=== PATIENT | female | born 1960 | race Caucasian/White ===

== ENCOUNTER 2025-03-13 13:05 | Outpatient (AMB) | payer BC, SELFPAY ==
--- NOTE | 2025-03-13 13:06 | A.PHYSOV ---
Vital Signs 03/13/25 13:11 Height 5 ft 4 in Weight 190 lb BMI 32.6 Intake Visit Reasons: follow up after Chavo back surgery Intake Note: Patient is a 64 year old female here for follow up after seeing Dr Spears. 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 Good is a 64-year-old female seen in evaluation today for right-sided low back pain. Patient previously had lumbar spinal stenosis. She underwent L5-S1 GRAEME on 09/12/2024 with 50% reduction of her pain. The patient was subsequently referred to neurosurgery for consultation. Patient tender of undergoing Neurosurgery in October. Shortly after that she developed severe right-sided low back pain that has markedly improved. The neurosurgeon is concern for sacroiliitis. Patient denies any radiation of her pain. She has been using anti-inflammatories and Tylenol for pain. She denies any recent trauma. She denies any incontinence, saddle anesthesia urinary retention. We do have MRI of her lumbar spine prior to surgery. She has a pain level today a 4/10. Procedure: L5-S1 GRAEME 09/12/2024 50% reduction of her pain [facility] Surgical History (Updated 03/13/25 @ 13:11 by Chayo Montgomery MA) History of back surgery Hx of tonsillectomy History of cancer surgery Previous section Social History Alcohol intake: current Patient Tobacco Use Status: Never used Tobacco Review of Systems Narrative Right-sided low back pain, no incontinence, saddle anesthesia urinary retention. With mod Physical Exam Exam Exam: Lumbar Spine: Examination of her lumbar spine, there is no visible swelling or deformity. She is nontender to her lower lumbar facets. She is tender to the right SI joint. Special Tests: Lhermittes sign was negative Heel Toe walk is normal Left straight leg raise: Negative Right straight leg raise: Negative Special tests Yamile test is positive right Ganslen's test is positive right SI Joint compression test positive right Ayse test negative Piriformis stretch is negative Lower Extremities: Full range of motion bilateral lower extremities. No calf pain or edema. Neuro: Sensation: Intact to lower extremities bilaterally Strength L2 (Psoas): 5/5 on the left and 5/5 on the right. L3 (Quads): 5/5 on the left and 5/5 on the right. L4 (Ant tibialis): 5/5 on the left and 5/5 on the right. L5 (EHL) 5/5 on the left and 5/5 on the right. S1 (Gastroc): 5/5 on the left and 5/5 on the right. DTR L4: (Patellar) Left 1 Right 1 S1: (Achilles) Left 1 Right 1 Babinski Downgoing No pathologic clonus. No involuntary movement. Vital Signs: BMI result Body Mass Index 32.6 Assessment & Plan Assessment & Plan (1) Sacroiliitis: Code(s): M46.1 - Sacroiliitis, not elsewhere classified Category: Medical (2) Back pain: Code(s): M54.9 - Dorsalgia, unspecified Category: Medical Qualifiers: Back pain location: low back pain Chronicity: chronic Back pain laterality: right Sciatica presence: without sciatica Qualified Code(s): M54.50 - Low back pain, unspecified; G89.29 - Other chronic pain Plan Ms. Good is a 64-year-old female seen in evaluation today for sacroiliitis. Her symptoms are improving. I will prescribe prednisone taper just in case her symptoms returned. She will contact our office if she would like to pursue SI joint injection. We discussed the benefits of proper nutrition and exercise to maintain a healthy body weight to improve longevity and function. We also discussed the benefits of proper lifting techniques, core strengthening and proper posture. Thank you for allowing me to participate in the care of your patient. Medications: New prednisone 3 tabs po for 3 days, 2 pills po for 3 days, 1 pill po for 3 days 20 mg PO DAILY 18 tabs 0RF G89.29 - Other chronic pain, M46.1 - Sacroiliitis, not elsewhere classified, M54.50 - Low back pain, unspecified Coding Level of Care Code Tele Est Pt Level 3 (88460) Diagnoses Sacroiliitis M46.1 Chronic right-sided low back pain without sciatica M54.50; G89.29 Back pain location: low back pain Chronicity: chronic Back pain laterality: right Sciatica presence: without sciatica
[2025-03-13 13:11] VITALS: BMI 32.6
--- OUTSIDE RECORDS SUMMARY | 2025-03-13 13:26 | XMS_ITS | Encounter Summary ---
Author Organization [facility] [place] [address] Care Team Providers Care Cath Lab Manager Name Role Phone Shayy Mcallister MD Primary Care Provider [phone] Reason for Visit * Reason Onset Date Comments Advice Only 03/10/2025 Worsening pain Encounter Details Date Type Department Care Team ([facility] Contact Info) Description 03/10/2025 Telephone Neurosurgery [facility] [address] [place] [address] Justina Yates PA [address], [address] [place] [address] Social History Tobacco Use Types Packs/Day Years Used Date Smoking Tobacco: Never Smokeless Tobacco: Never Alcohol Use Standard Drinks/Week Comments Yes 0 (1 standard drink = 0.6 oz pur e alcohol) 10-15 drinks per weekend Housing Instability Answer Date Recorde d Are you worried that in the next 2 months you may not have stable housing? No 07/22/2024 Food Access & Nutrition Answer Date Rec orded Do you have access to a vari ety of food including fruits and vegetables? Yes 07/22/2024 Access to Healthcare Answer Date Record ed Within the last 3 months, ho w many times did you visit the emergency department for your medical care? 0 07/22/2024 Health Literacy Answer Date Recorded How often do you need to hav e someone help you when you read instructions, pamphlets, or other written material from your doctor or pharmacy? Never 07/22/2024 Caregiver: How often do you need to have someone help you when you read instructions, pamphlets, or other written material from your doctor or pharmacy? Not on file 07/22/2024 Financial Risk Answer Date Recorded How hard is it for you to pa y for the very basics like food, housing, medical care, and air conditioning / heating? Very hard 07/22/2024 Transportation Answer Date Recorded Has the lack of transportati on kept you from meetings, work, or from getting things needed for daily living? No Has the lack of transportati on kept you from medical appointments or from getting medications? No 07/22/2024 Social Isolation Answer Date Recorded How often do you feel lonely or isolated from th ose around you? Never 07/22/2024 Food Risk Answer Date Recorded Within the past 12 months we worried whether our food would run out before we got money to buy more. Never true 07/22/2024 Within the past 12 months th e food we bought just didn't last and we didn't have money to get more. Never true 07/22/2024 Dependent Care Answer Date Recorded Do you need help finding or paying for care for your loved ones. For example, teacher early childhood development or elderly care for an older adult? No 07/22/2024 Education Answer Date Recorded Do you think completing more education or training, like finishing a GED, going to college, or learning a trade, would be helpful for you? No 07/22/2024 Employment and Income Answer Date Recor ded During the last four weeks, have you been actively looking for work? No 07/22/2024 Living Situation Answer Date Recorded What is your living situation? Unrecognized valu e 07/22/2024 Interpersonal Safety Answer Date Record ed Physical Abuse Unrecognized value 02/24/2025 Verbal Abuse Unrecognized value 02/24/2025 Education Answer Date Recorded What is the highest level of school you have completed or the highest degree you have received? 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 Hard to get up after bending. No particular inciting event. At her second postop visit in November Dr. Spears prescribed oral steroids for the SI joint pain, she does not feel it helped her. She was hesitant to try SI joint injection because In past steroid injections didn't help. However she will call Dr. Worthy and discuss getting right SI joint injection. Motrin not helping. I reminded her that when she first came in the office we talked about multiple factors that could be contributing to her back pain, including vertebrogenic back pain/Modic changes on MRI, SI joint pain. The decompression surgery helped her leg symptoms. She will call if she is not seeing improvement after SI joint injection, or has persistent chronic back pain that may do well with Intracept procedure. * Rhiannon Sheth - 03/10/2025 1:59 PM EST Patient called with worsening back pain. Can barely move or walk around. Is mostly sitting. Lookingfor advice. documented in this encounter Plan of Treatment Upcoming Encounters Date Type Department Care Team (Late st Contact Info) Description 03/30/2025 10:15 AM EST Office Visit Adult Medicine [address] [phone] Liliana Whyte PA [address] [place] [address] documented as of this encounter Goals Goal Patient Goal Type Associated Problems Recent Progress Patient-Stated? Author STG's General Yes López Villar, PT Note: Pt will perform correct technique for sup<->sit transfers w/ min VC's in 5/5 trials. (Met) Pt is Independent and compliant with initial HEP. (Met). Pt will report increased walking/standing tolerance to 30 mins or better for household IADL's and work activities. (Not met). Pt will report LBP that does not radiate to L buttock. (Not met) LTG's 12 visits General Yes López Villar, PT Note: Pt will I demonstrate proper technique for sup<->sit transfers in 5/5 trials. Pt will be Independent and compliant with final HEP. Pt will report increased walking/standing tolerance to at liberty for household IADL's and work activities. Pt will report RTW 1/2 time w/out increased L LBP. Autogenerated Goal Care Plan Autogenerated Problem No Thomas Anna documented as of this encounter Visit Diagnoses Not on filedocumented in this encounter Additional Health Concerns Active Problems Noted Date Diagnosed Date Autogenerated Problem 01/26/2025 Assessment Noted Time PHQ-9 Depression Total Score: 0 07/23/19 25 9:14 AM EDT documented as of this encounter Care Teams Cath Lab Manager Relationship Specialty Start Date End Date Shayy Mcallister MD [address] [place] [address] PCP - General 02/07/01 documented as of this encounter
--- OUTSIDE RECORDS SUMMARY | 2025-03-13 13:26 | XMS_ITS | Clinical Summary ---
Author Organization [facility] Address [address] [place] [phone] Phone Care Team Providers Care Commercial Leasing Manager Name Role Phone Shayy Mcallister MD Primary Care Provider [phone] Allergies Active Allergy Reactions Criticality Noted Date Comments Amoxicillin Trihydrate Hives Medium 05/04/2006 Other Reaction(s): Hives/Urticaria Erythromycin Hives High 07/01/2008 Other Reaction(s): Rash/Dermatitis Norethindrone Rash High 10/02/2013 Other Reaction(s): Rash/Dermatitis Terbinafine Hcl Hives Medium 07/20/2009 Other Reaction(s): Hives/Urticaria Medications dexAMETHasone (DECADRON) 2 mg tabletIndication s:Spinal stenosis, lumbar region with neurogenic claudication Take 1 tablet (2 mg total) by mouth every 8 (eight) hours for 4 days. 12 each 5 Active lisinopriL (PRINIVIL,ZESTRI L) 20 mg tablet Take 1 tablet (20 mg total) by mouth at bedtime. 90 tablet 5 Active metFORMIN (GLUCOPHAGE) 500 mg tablet TAKE 1 TABLET BY MOUTH 1 TIME EACH DAY WITH BREAKFAST. 90 tablet 1 5 Active atorvastatin (LIPITOR) 80 mg tablet TAKE 1 TABLET BY MOUTH EVERYDAY AT BEDTIME 90 tablet 1 5 Active polyethylene glycol (Golytely) 236-22.74-6.74 -5.86 gram solution Take 4L by mouth once for one dose. May substitue any PEG. Starting at 2PM the day before your procedure drink 1 8oz glasses at your own pace until you complete half of the gallon. Finish 2nd half of the gallon at 8PM. 4000 mL 5 Active bisacodyL (DULCOLAX) 5 mg EC tablet Take 2 tablets by mouth right before beginning bowel prep. See instructions provided by the office 2 tablet 5 Active Active Problems Problem Noted Date Diagnosed Date Spinal stenosis, lumbar region with neurogenic c laudication 10/14/2024 Assessment & Plan (12/02/2024 9:58 AM EDT): Ms. Kennedy has had resolution of the paresthesias in her legs but unfortunately, continues to have some sharp back pain limiting her activity tolerance to about 5 minutes. She is nonfocal on exam except for tenderness at her SI joints. This may be a confounding factor as she had extensive decompression at surgery. I am going to try her on a few days of low-dose Decadron as she was not anxious to consider SI joint injections. I also encouraged her to continue a walking and exercise program to the best of her ability. I did not see anything else on her preoperative study which I would offer intervention. Assessment & Plan (11/04/2024 3:02 PM EDT): Pt is POD #12 s/p L3-4 decompression and left L5-S1 discectomy. She is doing well, no fevers, wound drainage, sweats chills. She has good appetite. No bowel bladder dysfunction. She been walking around the house, has not done much walking outside yet. She notes that she is up for about 10 minutes or more she starts to feel some soreness in her back. She takes Tylenol 2 tabs every morning and does not need anything rest in the day. Ms. Kennedy is doing well postop, can follow-up in [address] Spears if she has any residual symptoms at that time. All postop questions answered. I Asked her to call with any concerns or questions. Assessment & Plan (10/27/2024 1:24 PM EDT): Patient is POD #4 s/p L3-4 decompression and left L5-S1 discectomy. She comes in today because she has had some bloody drainage from her wound, came in for wound check. She had the same bandage on her back from last night, there was minimal bloody drainage. Also one of the danika had twisted, was painful. She has been eating well, no bowel bladder issues. She has been having incisional pain, has not really paid attention to the preop symptoms to see if they have improved but has not noticed any numbness in her foot. Her pain is across the low back from the incision area. She has not specifically noticed leg pain. She has not been doing much walking yet. she has been using Tylenol and oxycodone every 6 hours, feels it wears off sooner than the 6 hours. She is not on any fish oil, aspirin, Plavix, NSAIDs. Ms. Kennedy is overall doing well postop, had minimal bloody drainage on her dressing from last night. I cleaned up the area, she had some coagulated blood over the midline incision, mild ecchymosis around the midline incision. Gauze dressing placed. I gave her some extra gauze and Medipore tape to put over the incision until the drainage stops. I told her she can take the oxycodone every 4 hours if needed. All questions answered. She comes in next week for postop appointment and to remove her danika. Assessment & Plan (10/14/2024 2:14 PM EDT): I reviewed patient's case and MRI with Dr. Spears. Dr. Spears agrees with L3-4 decompression for the severe stenosis and neurogenic claudication symptoms. She would also like to include left MIS L5-S1 discectomy since patient saw improvement with L5-S1 GRAEME in her left buttock pain, some of her symptoms may be coming from the left L5-S1 disc herniation as well. I called patient to give her this update, she agrees she would like to do L3-4 decompression and left L5-S1 discectomy. Spondylosis, unspecified 10/14/2024 Fatty liver 02/18/2024 COVID-19 virus detected 02/19/2020 Overview (04/10/2024): Per patient, exposed to son who was positive and she also tested + August 2019 Type 2 diabetes mellitus with obesity 01/25/2017 Overview (01/21/2025): 01/21/25 Regulatory IMO Update History of basal cell carcinoma 05/20/2013 Overview (04/10/2024): BCC 05/06 forehead (nodular) Diverticulosis of colon without hemorrhage 08/26 Overview (04/10/2024): Incidental finding at colonoscopy 08/26/2012. Tubular adenoma 08/26/2012 Overview (04/10/2024): 5 mm sigmoid colon polyp at CN 08/26/2012: tubular adenoma. Next CN 2017. HTN (hypertension), benign 05/03/2010 Hypercholesteremia 08/05/2008 Obesity (BMI 30.0-34.9) 07/01/2008 Onychomycosis 07/01/2008 Resolved Problems Problem Noted Date Diagnosed Date Resolved Date Melanocytic nevus of trunk 08/14/2022 0 11/26/2024 Inflamed seborrheic keratosis 08/14/2022 11/26/2024 Disorder of pigmentation 08/14/202209/2024 Diabetes mellitus ([facility]/HCC V24, [facility]/HCC V28) 11/26/2024 Basal cell carcinoma (BCC) of skin of trunk 08/14/2022 11/26/2024 Benign neoplasm of colon 09/2024 Overview (07/22/2024): 5 mm sigmoid colon polyp at CN 08/26/2012. Encounters Date Type Department Care Team Description 03/10/2025 Telephone [facility] [address] [place] [address] Jutsina Yates PA 02/24/2025 8:52 AM EST Anesthesia Event [facility] [address] [place] [phone] Frederick Licona MD Hayes, Brett L, JULISSA 02/24/2025 7:37 AM EST - 02/24/2025 11:59 PM EST Hospital Encounter [facility] [address] [place] [address] Lilia Lepe MD Hayes, Brett L, CRNA Saliga, Jesse L, MD History of colon polyps Discharge Disposition: Home or Self Care 02/18/2025 Telephone Adult Medicine [address] [phone] Shayy Mcallister MD from Last 3 Months Immunizations Immunization Administration Dates Next Due [employer] SARS-CoV-2 COVID -19, vector-nr, rS-Ad26, preservative free 08/02/2020 Td Tetanus diptheria (Tdvax) 7yo and older 09/04 Tdap Tetanus diptheria acell ular pertussis (Boostrix; Adacel) 7yo and older 07/01/2008 Surgical History Surgery Date Site/Laterality Comments SECTION 1986 & 1991 BACK SURGERY 04/23/1999 - 04/22/2000 likely L4-5 decompression/ discectomy, Dr. Mitchell COLONOSCOPY W/ BIOPSIES 08/26/2012 5 mm sigmoid colon polyp, tubular adenoma. minimal diverticulosis. OTHER SURGICAL HISTORY SPINE SURGERY 04/23/2019 - 04/22/2020 N/A SECTION, LOW TRANSVERSE BACK SURGERY 10/23/2024 L3-4 decompression and left L5-S1 discectomy LUMBAR DISC SURGERY 11/14 L3-4 decompression, L5-S1 diskectomy SCR MAMMO BI INCL CAD 02/18/2024 Bilateral TONSILLECTOMY Medical History Medical History Date Comments Obesity 07/01/2008 Onychomycosis 07/01/2008 Hypercholesteremia 08/05/2008 HTN (hypertension), benign 05/03/2010 Benign neoplasm of colon 08/26/2012 5 mm si gmoid colon polyp at CN 08/26/2012. Diverticulosis of colon (wit hout mention of hemorrhage) 08/26/2012 Incidental finding at colono scopy 08/26/2012. Actinic keratosis, hx of Diabetes mellitus type 2, un complicated (CMS/HCC V24, CMS/HCC V28) 01/25/2017 History of basal cell carcinoma 05/20/2013 BCC 05/06 forehead (nodular) Liver disease fatty liver Arthritis Joint pain lower back Colon polyp Fatty liver Family History Medical History Relation Name Comments Other: surgery complication Father 54 Diabetes Father's Brother Diabetes Father's Sister 1 Diabetes Father's Sister 2 ESRD & manuela t amputation Coronary artery disease Mother accidental Sister 1 x 1 fell into f anselmo pit & burned 75% of body Hypertension Sister 2 x 1 prediabetes, BC C w/ Moh's Relation Name Status Comments Brother x 1 Alive Father Father's Brother Father's Sister 1 Alive Father's Sister 2 Maternal Grandfather Maternal Grandmother Mother Paternal Grandfather Paternal Grandmother Sister 1 x 1 Sister 2 x 1 Alive Social History Tobacco Use Types Packs/Day Years Used Date Smoking Tobacco: Never Smokeless Tobacco: Never Tobacco Cessation:Counseling Given: Not Answered Alcohol Use Standard Drinks/Week Comments Yes 0 [...] care for your loved ones. For example, registered nurse maternal child or elderly care for an older adult? 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 Not on file Not on file Not on file Travel History Travel Start Travel End [place] 01/18/2025 02/17/2025 Obstetrics History Last Filed Vital Signs Vital Sign Reading Time Taken Comments Blood Pressure 142/73 02/24/2025 9:32 AM EST Pulse 70 02/24/2025 9:32 AM EST Temperature 36.8 C (98.2 F) 02/24/2025 9:12 AM EST Respiratory Rate 16 02/24/2025 9:32 AM EST Oxygen Saturation 98% 02/24/2025 9:32 AM EST Inhaled Oxygen Concentration - - Weight 88.5 kg (195 lb) 02/24/2025 8:41 AM EST Height 162.6 cm (5' 4 ) 02/24/2025 8:41 AM EST Body Mass Index 33.47 02/24/2025 8:41 AM EST Plan of Treatment Upcoming Encounters Date Type Department Care Team (Late st Contact Info) Description 03/30/2025 10:15 AM EST Office Visit Adult Medicine [facility] [address], [place] [phone] Liliana Whyte PA [address], [place] Health Maintenance Due Date Last Done Comments Diabetes: Annual Retina Eye Exam 1970 Pneumococcal Vaccine: 50+ Years (1 of 2 - PCV) 1979 Zoster Vaccines (1 of 2) 1979 COVID-19 Vaccine (2 - Tish risk series) 08/30/2020 08/02/2020 HIV Screening 04/01/2022 Cervical Cancer Screening: HPV 05/08/2024 05/08/2019 Influenza Vaccine (#1) 2024 Diabetes: Annual Foot Exam 02/13/2025 02/14/2024 Diabetes: Blood Sugar Control Test (HGBA1C) 05/29/2025 11/26/2024, 07/17/2024, 01/29/2024, Additional history exists Diabetes: Annual Urine Albumin-Creatinine Ratio (uACR) 07/17/2025 07/17/2024, 03/27/2023 Social Influencers of Health Screening 07/22/2025 07/22/2024 Diabetes: Annual GFR (Glomerular Filtration Rate) 11/26/2025 11/26/2024, 07/17/2024, 01/29/2024, Additional history exists Hypertension/CHF/CAD Annual BMP Blood Test 11/26/2025 11/26/2024, 07/17/2024, 01/29/2024, Additional history exists Breast Cancer Screening 02/17/2026 02/18/20, 02/18/2024, 04/19/2022, Additional history exists DTaP,Tdap,and Td Vaccines (3 - Td or Tdap) 09/04/2028 09/04/2018, 07/01/2008 Cholesterol Screening (Lipid Panel) 11/26/2029 11/26/2024, 01/29/2024, 01/29/2024 Colorectal Cancer Screening: Colonoscopy 02/24/2030 02/24/2025, 01/06/2019 RSV Immunization Adult Patients (1 - 1-dose 75+ series) 2035 Hepatitis C Screening Completed 08/21/2013 Depression Screening Completed 07/22/2024 HIB Vaccines Aged Out No longer eligi ble based on patient's age to complete this topic HPV Vaccines Aged Out No longer eligi ble based on patient's age to complete this topic Hepatitis A Vaccines Aged Out No long er eligible based on patient's age to complete this topic Hepatitis B Vaccines Aged Out No long er eligible based on patient's age to complete this topic IPV Vaccines Aged Out No longer eligi ble based on patient's age to complete this topic MMR Vaccines Aged Out No longer eligi ble based on patient's age to complete this topic Meningococcal ACWY Vaccine Aged Out N o longer eligible based on patient's age to complete this topic Meningococcal B Vaccine Aged Out No l onger eligible based on patient's age to complete this topic RSV Immunization Patients Under 20 months Aged Out No longer eligible based on patient's age to complete this topic Varicella Vaccines Aged Out No longer eligible based on patient's age to complete this topic Goals Goal Patient Goal Type Associated Problems [...] Autogenerated Goal Care Plan Autogenerated Problem No [employer] Implanted Type Area Battalion Fire Chief Device Identifier Shelf Expiration Date Model / Serial / Lot Powder Surgifoam Absorb Gel - Sna - [id number] Implanted:Qty: 1 on 10/23/2024 by Margi Spears MD at [facility] [employer] Left: Spine Lumbar [employer] 07/08/20261977 / NA / [id number] Procedures Procedure Name Priority Date/Time Associated Diagnosis Comments COLONOSCOPY Routine 02/24/2025 9:11 AM EST History of colon polyps TISSUE EXAM Routine 02/24/2025 9:03 AM EST History of colon polyps COMPREHENSIVE METABOLIC PANEL Routine 11/26/2024 10:20 AM EDT HTN (hypertension), benign HEMOGLOBIN A1C Routine 11/26/2024 10:20 AM EDT Type 2 diabetes mellitus with obesity ([facility]/HCC V24, CMS/[facility] V28) LIPID PANEL WITH REFLEX TO DIRECT LDL Routine 11/26/2024 10:20 AM EDT Hypercholesteremia MICROALBUMIN CREATININE URINE RATIO Routine 07/17/2024 9:30 AM EDT Type 2 diabetes mellitus with obesity (CMS/HCC V24, CMS/HCC V28) SCREENING MAMMOGRAPHY BI 2-VIEW BREAST INC CAD Routine 02/18/2024 8:11 AM EDT Encounter for screening mammogram for malignant neoplasm of breast DIABETES FOOT EXAM Routine 02/14/2024 HPV Routine 05/08/2019 HEPATITIS C SCREENING Routine 08/21/2013 from Last 3 Months or Most Recently Relevant to Health Maintenance Results * COLONOSCOPY Anesthesia - MAC; [facility] ENDOSCOPY (02/24/2025 9:11 AM EST) Anatomical Region Laterality Modality Endoscopy 02/24/2025 8:54 AM EST Impressions 02/24/2025 9:16 AM EST - Two diminutive polyps in the ascending colon, removed with a jumbo cold forceps. Resected and retrieved. - Diverticulosis in the sigmoid colon. - Internal hemorrhoids. Recommendation: - Await pathology results. - Repeat colonoscopy in 10 years for surveillance. Narrative 02/24/2025 9:[address] [facility] Patient Name: Pam Kennedy Procedure Date: 02/24/2025 8:54 AM Date of : 1960 Age: 64 Gender: Female Note Status: Finalized Attending MD: Lilia Lepe MD, Procedure Date No Time: 02/24/2025 Procedure: Colonoscopy Indications: High risk colon cancer surveillance: Personal history of colonic polyps Providers: Lilia Lepe MD Referring MD: Lilia Lepe MD Medicines: Monitored Anesthesia Care Complications: No immediate complications. Estimated blood loss: Minimal. Estimated Blood Loss: Estimated blood loss was minimal. Procedure: Pre-Anesthesia Assessment: - Prior to the procedure, a History and Physical was performed, and patient medications and allergies were reviewed. The patient is competent. The risks and benefits of the procedure and the sedation options and risks were discussed with the patient. All questions were answered and informed consent was obtained. Patient identification and proposed procedure were verified by the physician, the nurse, the electrical plumbing supervisor and the residential service technician in the pre-procedure area in the endoscopy suite. Mental Status Examination: alert and oriented. Airway Examination: normal oropharyngeal airway and neck mobility. Respiratory Examination: clear to auscultation. CV Examination: normal. Prophylactic Antibiotics: The patient does not require prophylactic antibiotics. Prior Anticoagulants: The patient has taken no anticoagulant or antiplatelet agents. ASA Grade Assessment: III - A patient with severe systemic disease. After reviewing the risks and benefits, the patient was deemed in satisfactory condition to undergo the procedure. The anesthesia plan was to use monitored anesthesia care (MAC). Immediately prior to administration of medications, the patient was re-assessed for adequacy to receive sedatives. The heart rate, respiratory rate, oxygen saturations, blood pressure, adequacy of pulmonary ventilation, and response to care were monitored throughout the procedure. The physical status of the patient was re-assessed after the procedure. After I obtained informed consent, the scope was passed under direct vision. Throughout the procedure, the patient's blood pressure, pulse, and oxygen saturations were monitored continuously. The Colonoscope was introduced through the anus and advanced to the cecum, identified by appendiceal orifice and ileocecal valve. The colonoscopy was performed without difficulty. The patient tolerated the procedure well. The quality of the bowel preparation was good. Findings: The perianal and digital rectal examinations were normal. Two sessile polyps were found in the ascending colon. The polyps were diminutive in size. These polyps were removed with a jumbo cold forceps. Resection and retrieval were complete. Estimated blood loss was minimal. Scattered small-mouthed diverticula were found in the sigmoid colon. Internal hemorrhoids were found during endoscopy. The hemorrhoids were Grade I (internal hemorrhoids that do not prolapse). Procedure Code(s): --- Professional --- 32004, Colonoscopy, flexible; with biopsy, single or multiple Diagnosis Code(s): --- Professional --- D12.2, Benign neoplasm of ascending colon CPT copyright 2020 [employer]. All rights reserved. The codes documented in this report are preliminary and upon fence installer foreman review may be revised to meet current compliance requirements. Lilia Lepe MD 02/24/2025 9:16:27 AM This report has been signed electronically.Lilia Lepe MD Number of Addenda: 0 Note Initiated On: 02/24/2025 8:54 AM Scope Withdrawal Time: 0 hours 9 minutes 55 seconds Scope In: 8:58:07 AM Scope Out: 9:13:30 AM Endoscopy Department at [facility] - [address] [place] [phone] Procedure Note Lilia Lepe MD - 02/24/2025 [facility] Patient Name: Pam Kennedy Procedure Date: 02/24/2025 8:54 AM Date of : 1960 Age: 64 Gender: Female Note Status: Finalized Attending MD: Lilia Lepe MD, Procedure Date No Time: 02/24/2025 Procedure: Colonoscopy Indications: High risk colon cancer surveillance: Personalhistory of colonic polyps Providers: Lilia Lepe MD Referring MD: Lilia Lepe MD Medicines: Monitored Anesthesia Care Complications: No immediate complications. Estimated blood loss: Minimal. Estimated Blood Loss: Estimated blood loss was minimal. Procedure: Pre-Anesthesia Assessment: - Prior to the procedure, a History and Physicalwas performed, and patient medications and allergieswere reviewed. The patient is competent. The risks and benefits of the procedure and the sedation optionsand risks were discussed with the patient. Allquestions were answered and informed consent was obtained. Patient identification and proposed procedure were verified by the physician, the nurse, theanesthetist and the residential service technician in the pre-procedure area in the endoscopy suite. Mental Status Examination: alertand oriented. Airway Examination: normal oropharyngeal airway and neck mobility. Respiratory Examination: clear to auscultation. CV Examination: normal. Prophylactic Antibiotics: The patient does notrequire prophylactic antibiotics. Prior Anticoagulants: The patient has taken no anticoagulant or antiplatelet agents. ASA Grade Assessment: III - A patient with severe systemic disease. After reviewing the risksand benefits, the patient was deemed in satisfactory condition to undergo the procedure. The anesthesia plan was to use monitored anesthesia care (MAC). Immediately prior to administration of medications, the patient was re-assessed for adequacy to receive sedatives. The heart rate, respiratory rate, oxygen saturations, blood pressure, adequacy of pulmonary ventilation, and response to care were monitored throughout the procedure. The physical status ofthe patient was re-assessed after the procedure. After I obtained informed consent, the scope was passed under direct vision. Throughout theprocedure, the patient's blood pressure, pulse, and oxygen saturations were monitored continuously. The Colonoscope was introduced through the anus and advanced to the cecum, identified by appendiceal orifice and ileocecal valve. The colonoscopy was performed without difficulty. The patient tolerated the procedure well. The quality of the bowel preparation was good. Findings: The perianal and digital rectal examinations were normal. Two sessile polyps were found in the ascendingcolon. The polyps were diminutive in size. These polypswere removed with a jumbo cold forceps. Resection and retrieval were complete. Estimated blood loss was minimal. Scattered small-mouthed diverticula were found inthe sigmoid colon. Internal hemorrhoids were found during endoscopy.The hemorrhoids were Grade I (internal hemorrhoids thatdo not prolapse). Procedure Code(s): --- Professional --- 71866, Colonoscopy, flexible; with biopsy, singleor multiple Diagnosis Code(s): --- Professional --- D12.2, Benign neoplasm of ascending colon CPT copyright 2020 [employer]. All rights reserved. The codes documented in this report are preliminary and upon fence installer foreman reviewmay be revised to meet current compliance requirements. Lilia Lepe MD 02/24/2025 9:16:27 AM This report has been signed electronically.Lilia Lepe MD Number of Addenda: 0 Note Initiated On: 02/24/2025 8:54 AM Scope Withdrawal Time: 0 hours 9 minutes 55 seconds Scope In: 8:58:07 AM Scope Out: 9:13:30 AM Endoscopy Department at [facility] - [address] [place] [phone] IMPRESSION: - Two diminutive polyps in the ascending colon, removed with a jumbo cold forceps. Resected and retrieved. - Diverticulosis in the sigmoid colon. - Internal hemorrhoids. Recommendation: - Await pathology results. - Repeat colonoscopy in 10 years forsurveillance. Lilia Lepe MD GI~PROCEDURE ORDERABLES Fin al Result * Tissue exam (02/24/2025 9:03 AM EST) Final Diagnosis Ascending colon polyps x2: Tubular adenoma(s), two of three fragments 02/25/2025 11:43 AM [facility] at 1143 EST Gross Description A. Large Intestine, Right/Ascend ing Colon, polyps x2 via jumbo forcep: Labeled polyps x 2 ascend colon . Received in formalin are three soft, tavares-pink, slightly polypoid tissue fragments ranging from 0.25 cm to 0.35 cm in greatest diameter, which are wrapped in paper and submitted in toto in one cassette, three pieces, multiple levels. TS 02/25/2025 11:43 AM [facility] Disclaimer Unless otherwise specified, all tissue is 10% NB formalin fixed and paraffin embedded. 02/25/2025 11:43 AM [facility] Tissue Ascending colon structure / Unknown 02/24/2025 9:03 AM EST 02/24/2025 10:32 AM EST us Lilia Lepe MD LAB PATHOLOGY ORDERABLES Fi nal Result Performing Organization Address City/[facility]/ZIP Co de Phone Number [facility] [address] [place] [address], [place] [phone] * (ABNORMAL) Lipid panel with reflex to direct LDL (11/26/2024 10:20 AM EDT) Cholesterol 199 0 - 200 mg/dL LAB CHEMISTRY METHOD 11/26/2024 12:52 PM EDT [facility] Triglycerides 102 0 - 150 mg/dL LAB CHEMISTRY METHOD 11/26/2024 12:52 PM EDT [facility] HDL 78 >=40 mg/dL LAB CHEMISTRY METHOD 11/26/2024 12:52 PM EDT [facility] LDL Calculated 101(H) 0 - 100 mg/dL LAB CHEMISTRY METHOD 11/26/2024 12:52 PM EDT [facility] Comment:Estimated LDL Calcul ated using equation: Total cholesterol - HDL cholesterol - (Triglycerides/5) VLDL Cholesterol Alexis 20.4 mg/dL LAB CHEMISTRY METHOD 11/26/2024 12:52 PM EDT [facility] Non HDL Chol. (LDL+VLDL) 121 <145 mg/dL LAB CHEMISTRY METHOD 11/26/2024 12:52 PM EDT [facility] Chol/HDL Ratio 2.6 0.0 - 4.4 LAB CHEMISTRY METHOD 11/26/2024 12:52 PM EDT [facility] Blood Venous blood specimen / Unknown Venipuncture / Unknown 11/26/2024 10:20 AM EDT 11/26/2024 10:20 AM EDT us Shayy Mcallister MD LAB BLOOD ORDERABLES Final Resul t [facility] [address] [place] [address], [place] [phone] * (ABNORMAL) Hemoglobin A1c (11/26/2024 10:20 AM EDT) [facility] Hemoglobin A1C 6.6(H) <6.5 % LAB CHEMISTRY METHOD 11/26/2024 1:21 PM EDT [facility] Mean Bld Glu Estim. 143 mg/dL LAB CHEMISTRY METHOD 11/26/2024 1:21 PM EDT [facility] Blood Venous blood specimen / Unknown Venipuncture / Unknown 11/26/2024 10:20 AM EDT 11/26/2024 10:20 AM EDT us Shayy Mcallister MD LAB BLOOD ORDERABLES Final Resul t [facility] [address] [place] [address], [place] [phone] * (ABNORMAL) Comprehensive metabolic panel (11/26/2024 10:20 AM EDT) [facility] Sodium 139 133 - 145 mmol/L LAB CHEMISTRY METHOD 11/26/2024 12:52 PM [facility] Potassium 4.6 3.5 - 5.5 mmol/L LAB CHEMISTRY METHOD 11/26/2024 12:52 PM [facility] Chloride 106 96 - 110 mmol/L LAB CHEMISTRY METHOD 11/26/2024 12:52 PM [facility] CO2 28 21 - 32 mmol/L LAB CHEMISTRY METHOD 11/26/2024 12:52 PM [facility] Anion Gap 5 3 - 11 LAB CHEMISTRY METHOD 11/26/2024 12:52 PM [facility] Glucose 123(H) 70 - 100 mg/dL LAB CHEMISTRY METHOD 11/26/2024 12:52 PM [facility] BUN 15 5 - 25 mg/dL LAB CHEMISTRY METHOD 11/26/2024 12:52 PM [facility] Creatinine 0.79 0.50 - 1.10 mg/dL LAB CHEMISTRY METHOD 11/26/2024 12:52 PM [facility] eGFR 84 >=60 mL/min/1. 73m2 LAB CHEMISTRY METHOD 11/26/2024 12:52 PM [facility] Comment:Calculation based on the Chronic Kidney Disease Epidemiology Collaboration (CKD-EPI) equation refit without adjustment for race. BUN/Creatinine Ratio 19.0 LAB CHEMISTRY METHOD 11/26/2024 12:52 PM [facility] Calcium 8.9 8.5 - 10.5 mg/dL LAB CHEMISTRY METHOD 11/26/2024 12:52 PM [facility] AST (SGOT) 18 10 - 42 unit/L LAB CHEMISTRY METHOD 11/26/2024 12:52 PM [facility] ALT (SGPT) 22 10 - 60 unit/L LAB CHEMISTRY METHOD 11/26/2024 12:52 PM [facility] Alkaline Phosphatase 175(H) 42 - 121 unit/L LAB CHEMISTRY METHOD 11/26/2024 12:52 PM [facility] Total Protein 6.9 6.0 - 8.0 g/dL LAB CHEMISTRY METHOD 11/26/2024 12:52 PM [facility] Albumin 3.7 3.2 - 5.0 g/dL LAB CHEMISTRY METHOD 11/26/2024 12:52 PM [facility] Total Bilirubin 0.3 0.0 - 1.4 mg/dL LAB CHEMISTRY METHOD 11/26/2024 12:52 PM [facility] Blood Venous blood specimen / Unknown Venipuncture / Unknown 11/26/2024 10:20 AM EDT 11/26/2024 10:20 AM EDT us Shayy Mcallister MD LAB BLOOD ORDERABLES Final Resul t Performing Organization Address [facility] Co de Phone Number [facility] [address] [place] [address], * Microalbumin creatinine urine ratio (07/17/2024 9:30 AM EDT) Creatinine, Urine 110.0 mg/dL LAB CHEMISTRY METHOD 07/17/2024 4:38 PM EDT [facility] Microalb, Ur 6.4 0.0 - 29.0 mg/L LAB CHEMISTRY METHOD 07/17/2024 4:38 PM EDT [facility] Microalb/Creat Ratio 6 <30 mg/g creat LAB CHEMISTRY METHOD 07/17/2024 4:38 PM EDT [facility] Urine Urine specimen obtained by clean catch procedure / Unknown Non-blood Collection / Unknown 07/17/2024 9:30 AM EDT 07/17/2024 9:30 AM EDT Shayy Mcallister MD LAB URINE ORDERABLES Final Resul t Performing Organization Address [facility] de Phone Number [facility] [address] [place] [address], * SCREENING MAMMOGRAPHY BI 2-VIEW BREAST INC CAD (02/18/2024 8:11 AM EDT) Anatomical Region Laterality Modality Radiographic Eladia ging 08/03/2023 8:03 PM EDT Narrative 02/18/2024 7:27 PM EDT This is a summary report. The complete report is available in the patient's medical record. If you cannot access the medical record, please contact the sending organization for a detailed fax or copy. Exam: Screening mammogram Findings: Digital bilateral full-field screening mammography is performed with tomosynthesis and interpreted with the aid of computer-aided detection. Comparison is made with 02/17/2022 and as far back as 03/31/2020. Breast parenchyma is composed of scattered fibroglandular densities. No new suspicious mass, architectural distortion, or suspicious calcifications. Impression: No mammographic evidence of malignancy. BI-RADS 1 - negative [address] [address] Procedure Note Alexsandra Santos MD - 02/23/2024 This is a summary report. The complete report is available in thepatient's medical record. If you cannot access the medical record, pleasecontact the sending organization for a detailed fax or copy. Exam: Screening mammogram Findings: Digital bilateral full-field screening mammography is performedwith tomosynthesis and interpreted with the aid of computer-aideddetection. Comparison is made with 02/17/2022 and as far back as106/01/2019. Breast parenchyma is composed of scattered fibroglandular densities. Nonew suspicious mass, architectural distortion, or suspiciouscalcifications. Impression: No mammographic evidence of malignancy. BI-RADS 1 - negative [address] [address] Liliana CHONG IMG XR PROCEDURES Final Resul t * Diabetes Foot Exam (02/14/2024) [facility] Diabetes: Annual Foot Exam abstracted Result [facility] Provider HEALTH MAINTENANCE Final Result * Cervical Cancer Screening: HPV (05/08/2019) [facility] Cervical Cancer Screening: HPV negative, abstracted [facility] Provider HEALTH MAINTENANCE Final Result * Hepatitis C Screening (08/21/2013) Pathologist [facility] Hepatitis C Screening abstracted [facility] Provider HEALTH MAINTENANCE Final Result from Last 3 Months or Most Recently Relevant to Health Maintenance Additional Health Concerns Active Problems Noted Date Diagnosed Date Autogenerated Problem 01/26/2025 Insurance [facility] Care Teams Commercial Leasing Manager Relationship Specialty Start Date End Date Shayy Mcallister MD [address] [place] [address] PCP - General 02/07/01
== END 2025-03-13 14:02 | disposition home or self-care (01) ==
LOC: HO.HPHYS 13:05
PROVIDERS: PCP Internal Medicine; Visit Provider Physician Assistant
DX: M46.1 Sacroiliitis, not elsewhere classified (principal); M54.50 Low back pain, unspecified; G89.29 Other chronic pain
CPT/HCPCS: 99213

== ENCOUNTER 2025-03-27 13:02 | Outpatient (REF) | payer MEDICARE, SELFPAY | END 2025-03-27 13:03 | disposition home or self-care (01) | LOC: HO.HPHYSR 13:02 | PROVIDERS: PCP Internal Medicine; Visit Provider Physical Medicine & Rehabilitation | DX: M46.1 Sacroiliitis, not elsewhere classified (principal); M53.3 Sacrococcygeal disorders, not elsewhere classified | CPT/HCPCS: 27096; J2003; J3301; Q9967 ==

== ENCOUNTER 2025-03-27 13:02 | Outpatient (AMB) | payer MEDICARE, SELFPAY ==
[2025-03-27 13:06] VITALS: BP 120/74; PULSE 97; TEMP 36.2; BMI 32.6
--- NOTE | 2025-03-27 13:06 | A.PHYSOV_ITS ---
Vital Signs 03/27/25 13:06 Height 5 ft 4 in Weight 190 lb BMI 32.6 BP 120/74 Pulse 97 Temp 97.2 F Intake Visit Reasons: Right Sacroiliac Joint Injection Intake Note: Patient is a 65 year old female in office today for a right sacroiliac joint injection. Forming Machine Tender Required: No Allergies erythromycin base Allergy (Unknown, Verified 03/27/25 13:07) unknown terbinafine Allergy (Unknown, Verified 03/27/25 13:07) Unknown amoxicillin trihydrate Allergy (Unknown, Uncoded 03/12/25 07:44) Unknown [facility] Medical History (Updated 03/27/25 @ 13:12 by Marcial Worthy DO) Sacroiliac dysfunction Surgical History History of back surgery Hx of tonsillectomy History of cancer surgery Previous section Social History Alcohol intake: current Patient Tobacco Use Status: Never used Tobacco Use of substances other than those prescribed or required for medical reasons: No Current occupational status: retired Physical Exam Vital Signs: Last Vital Signs Temp 97.2 F 03/27/25 13:06 Pulse 97 03/27/25 13:06 BP 120/74 03/27/25 13:06 BMI result Body Mass Index 32.6 Office Procedures AMB Sacroiliac Joint Injection AMB Sacroiliac Joint Injection Procedure Details: Procedure performed: Right sacroiliac joint injection Preop diagnosis: SI joint mediated pain, sacroiliitis Postop diagnosis: The same Anesthesia: Local After informed consent was obtained patient was brought into the procedure room and placed in prone position on the procedure table. Skin over lumbar sacral area was prepped and draped in the usual sterile manner. The inferior portion of the right sacroiliac joint was visualized utilizing fluoroscopy. 3.5 in 22 gauge spinal needle was introduced percutaneously and advanced into the joint. Needle placement was verified utilizing 0.5 cc of Omnipaque contrast solution. 2.5 cc of therapeutic solution containing 40 mg of triamcinolone and 2% lidocaine was injected after negative aspiration for blood. The C-arm was obliqued about 30? in the contralateral direction an area just medial the proximal portion of the sacroiliac joint was visualized. 3.5 in 22 gauge spinal needle was introduced percutaneously and advanced to enter the area. Once in place, needle placement was identified utilizing 1 cc of Omnipaque contrast solution. Total volume of 2.5 cc containing 40 mg of triamcinolone and 2% lidocaine was injected to block the lateral branches at the sacroiliac ligament. Radiation exposure was documented in the chart. Sacroiliac Joint Injections 44044 - use with FL Gd order: Right All charges added?: Procedure code (CPT) selection complete Office Meds Kenalog 40 mg/mL suspension for injection Performing Provider: Marcial Worthy DO Performing Location: [facility] Administered by: Marcial Worthy DO on 03/27/25 13:13 Dose Route Admin Location Dispensed Lot Number Expiration Date [facility] High Pressure Boiler Operator 80 mg intra-articular 2 mL [id number] [employer] Total Dispensed Waste 2 mL 0 % lidocaine (PF) 20 mg/mL (2 %) injection solution Performing Provider: Marcial Worthy DO Performing Location: [facility] Administered by: Marcial Worthy DO on 03/27/25 13:13 Dose Route Admin Location Dispensed Lot Number Expiration Date [facility] High Pressure Boiler Operator 120 mg intra-articular 10 mL [id number] [facility] Total Dispensed Waste 10 mL 40 % Omnipaque 300 300 mg iodine/mL intravenous solution Performing Provider: Marcial Worthy DO Performing Location: [facility] Administered by: Marcial Worthy DO on 03/27/25 13:13 Dose Route Admin Location Dispensed Lot Number Expiration Date [facility] High Pressure Boiler Operator 3 mL intra-articular 10 mL [id number] [employer] Total Dispensed Waste 10 mL 70 % Assessment & Plan Assessment & Plan (1) Sacroiliitis: Code(s): M46.1 - Sacroiliitis, not elsewhere classified Category: Medical Plan: Procedure (2) Sacroiliac dysfunction: Code(s): M53.3 - Sacrococcygeal disorders, not elsewhere classified Category: Medical Plan: Procedure Plan Procedure Orders: Orders FL Guided Sacroiliac Jt Inj RT Today M46.1 - Sacroiliitis, not elsewhere classified, M53.3 - Sacrococcygeal disorders, not elsewhere classified AMB Sacroiliac Joint Injection Today M46.1 - Sacroiliitis, not elsewhere classified, M53.3 - Sacrococcygeal disorders, not elsewhere classified Coding Level of Care Code Procedure Only Diagnoses Sacroiliitis M46.1 Sacroiliac dysfunction M53.3 CPT Codes AMB Sacroiliac Joint Injection - Hip intraarticular Injection - 29709: Right ([id number])
--- OUTSIDE RECORDS SUMMARY | 2025-03-27 17:00 | XMS_ITS | Clinical Summary ---
Author Organization [facility] Address [address] [place] [phone] Phone Care Team Providers Care Men'S Locker Room Attendant Name Role Phone Shayy Mcallister MD Primary Care Provider Allergies Active Allergy Reactions Criticality Noted Date [...] 11/26/2024 Disorder of pigmentation 08/14/202209/2024 Diabetes mellitus ([facility]/HCC V24, CMS/HCC V28) 11/26/2024 Basal cell carcinoma (BCC) of skin of trunk 08/14/2022 11/26/2024 Benign neoplasm of colon 09/2024 Overview (07/22/2024): 5 mm sigmoid colon polyp at [facility] 08/26/2012. Encounters Date Type Department Care Team Description 03/22/2025 Results Follow-Up Gastroenterology - [place] 175 [facility] 175 [facility] 200 [place] [address] Lilia Lepe MD 03/10/2025 Telephone Neurosurgery [facility] [place] 175 [facility] 300 [place] [address] Justina Yates PA 02/24/2025 8:52 AM EST Anesthesia Event [facility] Endoscopy [address] [place] [address] Frederick Licona MD Hayes, Brett L, JULISSA 02/24/2025 7:37 AM EST - 02/24/2025 11:59 PM EST Hospital Encounter [facility] End[facility] [address] [place] [phone] Lilia Lepe MD Hayes, Brett L, Frederick Rodriguez MD History of colon polyps Discharge Disposition: Home or Self Care 02/18/2025 Telephone Adult Medicine [address] [address] Shayy Mcallister MD from Last 3 Months Immunizations Immunization Administration Dates Next Due [employer] SARS-CoV-2 COVID -19, vector-nr, rS-Ad26, preservative free [...] care for your loved ones. For example, children's ministries director or elderly care for an older adult? 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 Not on file Not on file Not on file Obstetrics History Last Filed Vital Signs Vital [...] Team (Late st Contact Info) Description 03/30/2025 2:00 PM EST Office Visit Adult Medicine [facility] [address] [place], [place] [phone] Liliana Whyte PA [address] [place], [place] Health Maintenance Due Date Last Done Comments Diabetes: Annual Retina Eye Exam 1970 Pneumococcal Vaccine: 50+ Years (1 of 2 - PCV) 1979 Zoster Vaccines (1 of 2) 1979 COVID-19 Vaccine (2 - Tish risk series) 08/30/2020 08/02/2020 Medicare Annual Wellness Visit 04/01/2022 Osteoporosis Screening (Bone Density Screening) 04/01/2022 Cervical Cancer Screening: HPV 05/08/2024 05/08/2019 [...] Additional history exists Breast Cancer Screening 02/17/2026 02/18/20 24, 02/18/2024, 04/19/2022, Additional history exists Falls Risk Assessment 02/24/2026 02/24/2025 DTaP,Tdap,and Td Vaccines (3 - Td or Tdap) 09/04/2028 09/04/2018, 07/01/2008 Cholesterol Screening (Lipid Panel) 11/26/2029 11/26/2024, 01/29/2024, 01/29/2024 Colorectal Cancer Screening: Colonoscopy 02/24/2035 02/24/2025, 01/06/2019 RSV Immunization Adult Patients (1 [...] Anna Thomas Medical Devices Implanted Type Area Oil Gauger Device Identifier Shelf Expiration Date Model / Serial / Lot Powder Surgifoam Absorb Gel - Sna - [id number] Implanted:Qty: 1 on 10/23/2024 by Margi Spears MD at [facility] [employer] Left: Spine Lumbar [employer] 07/08/20261977 / NA / [id number] Procedures Procedure Name Priority Date/Time Associated Diagnosis Comments COLONOSCOPY Routine 02/24/2025 9:11 AM EST History of colon polyps TISSUE EXAM Routine 02/24/2025 9:03 AM EST History of colon polyps COMPREHENSIVE METABOLIC PANEL Routine 11/26/2024 10:20 AM EDT HTN (hypertension), benign HEMOGLOBIN A1C Routine 11/26/2024 10:20 AM EDT Type 2 diabetes mellitus with obesity ([facility]/HCC V24, CMS/HCC V28) LIPID PANEL WITH REFLEX TO DIRECT [...] Maintenance Results * COLONOSCOPY Anesthesia - MAC; SP ENDOSCOPY (02/24/2025 9:11 AM EST) Anatomical Region Laterality Modality Endoscopy 02/24/2025 8:54 AM EST Impressions 02/24/2025 9:16 AM EST - Two diminutive polyps in the ascending colon, removed with a jumbo cold forceps. Resected and retrieved. - Diverticulosis in the sigmoid colon. - Internal hemorrhoids. Recommendation: - Await pathology results. - Repeat colonoscopy in 10 years for surveillance. Narrative 02/24/2025 9:16 AM EST [facility] GI Patient Name: Pam Kennedy Procedure Date: [...] verified by the physician, the nurse, the motion picture actor and the cmm technician in the pre-procedure area in the [...] not prolapse). Procedure Code(s): --- Professional --- 42331, Colonoscopy, flexible; with biopsy, single or multiple Diagnosis Code(s): --- Professional --- D12.2, Benign neoplasm of ascending colon CPT copyright 2020 [employer]. All rights reserved. The codes documented in this report are preliminary and upon robotics testing technician review may be revised to meet current compliance requirements. Lilia Lepe MD 02/24/2025 9:16:27 AM This report has been signed electronically.Lilia Lepe MD Number of Addenda: 0 Note Initiated On: 02/24/2025 8:54 AM Scope Withdrawal Time: 0 hours 9 minutes 55 seconds Scope In: 8:58:07 AM Scope Out: 9:13:30 AM Endoscopy Department at [facility] - [address] [place] [phone] Procedure Note Lilia Lepe MD - 02/24/2025 [facility] GI Patient Name: Pam Kennedy Procedure Date: [...] the physician, the nurse, theanesthetist and the cmm technician in the pre-procedure area in the [...] not prolapse). Procedure Code(s): --- Professional --- 24745, Colonoscopy, flexible; with biopsy, singleor multiple Diagnosis Code(s): --- Professional --- D12.2, Benign neoplasm of ascending colon CPT copyright 2020 [employer]. All rights reserved. The codes documented in this report are preliminary and upon robotics testing technician reviewmay be revised to meet current compliance requirements. Lilia Lepe MD 02/24/2025 9:16:27 AM This report has been signed electronically.Lilia Lepe MD Number of Addenda: 0 Note Initiated On: 02/24/2025 8:54 AM Scope Withdrawal Time: 0 hours 9 minutes 55 seconds Scope In: 8:58:07 AM Scope Out: 9:13:30 AM Endoscopy Department at [facility] - [address] [place] [phone] IMPRESSION: - Two diminutive polyps in the [...] two of three fragments 02/25/2025 11:43 AM EST [facility] at 1143 EST Gross Description A. [...] pieces, multiple levels. TS 02/25/2025 11:43 AM EST [facility] Disclaimer Unless otherwise specified, all tissue is 10% NB formalin fixed and paraffin embedded. 02/25/2025 11:43 AM EST [facility] Tissue Ascending colon structure / Unknown 02/24/2025 9:03 AM EST 02/24/2025 10:32 AM EST us Lilia Lepe MD LAB PATHOLOGY ORDERABLES Fi nal Result [facility] [address] [place] [address], [place] [phone] * (ABNORMAL) Lipid panel with reflex to direct LDL (11/26/2024 10:20 AM EDT) Cholesterol 199 0 - 200 mg/dL LAB CHEMISTRY METHOD 11/26/2024 12:52 PM EDT [facility] Triglycerides 102 0 - 150 mg/dL LAB CHEMISTRY METHOD 11/26/2024 12:52 PM EDT [facility] HDL 78 >=40 mg/dL LAB CHEMISTRY METHOD 11/26/2024 12:52 PM EDT [facility] LDL Calculated 101(H) 0 - 100 mg/dL LAB CHEMISTRY METHOD 11/26/2024 12:52 PM EDT [facility] Comment:Estimated LDL Calcul ated using equation: Total cholesterol - HDL cholesterol - (Triglycerides/5) VLDL Cholesterol Alexis 20.4 mg/dL LAB CHEMISTRY METHOD 11/26/2024 12:52 PM EDT [facility] Non HDL Chol. (LDL+VLDL) 121 <145 mg/dL LAB CHEMISTRY METHOD 11/26/2024 12:52 PM EDT [facility] Chol/HDL Ratio 2.6 0.0 - 4.4 LAB CHEMISTRY METHOD 11/26/2024 12:52 PM [facility] Blood Venous blood specimen / Unknown Venipuncture / Unknown 11/26/2024 10:20 AM EDT 11/26/2024 10:20 AM EDT us Shayy Mcallister MD LAB BLOOD ORDERABLES Final Resul t Performing Organization Address [facility]/ZIP Co de Phone Number [facility] [address] [place] [address], [place] [phone] * (ABNORMAL) Hemoglobin A1c (11/26/2024 10:20 AM EDT) Hemoglobin A1C 6.6(H) <6.5 % LAB CHEMISTRY METHOD 11/26/2024 1:21 PM EDT [facility] Mean Bld Glu Estim. 143 mg/dL LAB CHEMISTRY METHOD 11/26/2024 1:21 PM EDT [facility] Blood Venous blood specimen / Unknown Venipuncture / Unknown 11/26/2024 10:20 AM EDT 11/26/2024 10:20 AM EDT us Shayy Mcallister MD LAB BLOOD ORDERABLES Final Resul t Performing Organization Address [facility]/ZIP Co de Phone Number [facility] [address] [place] [address], [place] [phone] * (ABNORMAL) Comprehensive metabolic panel (11/26/2024 10:20 AM EDT) Pathologist [facility] Sodium 139 133 - 145 mmol/L LAB CHEMISTRY METHOD 11/26/2024 12:52 PM EDT [facility] Potassium 4.6 3.5 - 5.5 mmol/L LAB CHEMISTRY METHOD 11/26/2024 12:52 PM EDT [facility] Chloride 106 96 - 110 mmol/L LAB CHEMISTRY METHOD 11/26/2024 12:52 PM EDT [facility] CO2 28 21 - 32 mmol/L LAB CHEMISTRY METHOD 11/26/2024 12:52 PM EDT [facility] Anion Gap 5 3 - 11 LAB CHEMISTRY METHOD 11/26/2024 12:52 PM [facility] Glucose 123(H) 70 - 100 mg/dL LAB CHEMISTRY METHOD 11/26/2024 12:52 PM [facility] BUN 15 5 - 25 mg/dL LAB CHEMISTRY METHOD 11/26/2024 12:52 PM [facility] Creatinine 0.79 0.50 - 1.10 mg/dL LAB CHEMISTRY METHOD 11/26/2024 12:52 PM [facility] eGFR 84 >=60 mL/min/1. 73m2 LAB CHEMISTRY METHOD 11/26/2024 12:52 PM [facility] Comment:Calculation based on the Chronic Kidney Disease Epidemiology Collaboration (CKD-EPI) equation refit without adjustment for race. BUN/Creatinine Ratio 19.0 LAB CHEMISTRY METHOD 11/26/2024 12:52 PM [facility] Calcium 8.9 8.5 - 10.5 mg/dL LAB CHEMISTRY METHOD 11/26/2024 12:52 PM [facility] AST (SGOT) 18 10 - 42 unit/L LAB CHEMISTRY METHOD 11/26/2024 12:52 PM [facility] ALT (SGPT) 22 10 - 60 unit/L LAB CHEMISTRY METHOD 11/26/2024 12:52 PM [facility] Alkaline Phosphatase 175(H) 42 - 121 unit/L LAB CHEMISTRY METHOD 11/26/2024 12:52 PM [facility] Total Protein 6.9 6.0 - 8.0 g/dL LAB CHEMISTRY METHOD 11/26/2024 12:52 PM [facility] Albumin 3.7 3.2 - 5.0 g/dL LAB CHEMISTRY METHOD 11/26/2024 12:52 PM [facility] Total Bilirubin 0.3 0.0 - 1.4 mg/dL LAB CHEMISTRY METHOD 11/26/2024 12:52 PM [facility] Blood Venous blood specimen / Unknown Venipuncture / Unknown 11/26/2024 10:20 AM EDT 11/26/2024 10:20 AM EDT us Shayy Mcallister MD LAB BLOOD ORDERABLES Final Resul t Performing Organization Address [facility] de Phone Number [facility] [address] [place] [address], [place] [phone] * Microalbumin creatinine urine ratio (07/17/2024 9:30 AM EDT) Creatinine, Urine 110.0 mg/dL LAB CHEMISTRY METHOD 07/17/2024 4:38 PM EDT [facility] Microalb, Ur 6.4 0.0 - 29.0 mg/L LAB CHEMISTRY METHOD 07/17/2024 4:38 PM EDT [facility] Microalb/Creat Ratio 6 <30 mg/g creat LAB CHEMISTRY METHOD 07/17/2024 4:38 PM EDT [facility] Urine Urine specimen obtained by clean catch procedure / Unknown Non-blood Collection / Unknown 07/17/2024 9:30 AM EDT 07/17/2024 9:30 AM EDT us Shayy Mcallister MD LAB URINE ORDERABLES Final Resul t Performing Organization Address [facility] de Phone Number [facility] [address] [place] [address], [place] [phone] * SCREENING MAMMOGRAPHY BI 2-VIEW BREAST INC [...] evidence of malignancy. BI-RADS 1 - negative [address] [address] Procedure Note Alexsandra Santos MD - 02/23/2024 [...] evidence of malignancy. BI-RADS 1 - negative [address] [address] Liliana CHONG IMG XR PROCEDURES Final Resul t * Diabetes Foot Exam (02/14/2024) [facility] Diabetes: Annual Foot Exam abstracted [facility] Provider HEALTH MAINTENANCE Final Result * Cervical Cancer Screening: HPV (05/08/2019) [facility] Cervical Cancer Screening: HPV negative, abstracted Result [facility] Provider HEALTH MAINTENANCE Final Result * Hepatitis C Screening (08/21/2013) [facility] Hepatitis C Screening abstracted [facility] Provider HEALTH MAINTENANCE Final Result from Last 3 Months or Most Recently Relevant to Health Maintenance Additional Health Concerns Active Problems Noted Date Diagnosed Date Autogenerated Problem 01/26/2025 [facility] Care Teams Men'S Locker Room Attendant Relationship Specialty Start Date End Date Shayy Mcallister MD [address] [place] [address] PCP - General 02/07/01
--- OUTSIDE RECORDS SUMMARY | 2025-03-27 17:00 | XMS_ITS | Encounter Summary ---
Author Organization [place] [address] Care Team Providers Care Chainstitch Elastic Attacher Name Role Phone Shayy Mcallister MD Primary Care Provider [phone] Encounter Details Date Type Department Care Team ([facility] st Contact Info) Description 03/22/2025 Results Follow-Up Gastroenterology - [place] 175 [facility] 175 [facility] [address] [place] [address] Lilia Lepe MD 299 [facility] [address] [place] [address] Social History Tobacco Use Types Packs/Day Years [...] care for your loved ones. For example, child center assistant or elderly care for an older adult? 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 Since these were removed, it won't cause you any problems in the future. Based on the number, the size, and the features of the polyp(s) removed, I recommend a follow-up colonoscopy in 10 years. Before, the 10 years are due, we will send you a reminder in the mail asking you to contact our office to have the colonoscopy scheduled. I would like to personally thank you for allowing us to take care of you. Please don't hesitate to call us for any questions or concerns. RegardsDerek MD Board Certified Gastroenterology and Internal Medicine Transplant Hepatology [facility] documented in this encounter Plan of Treatment Upcoming Encounters Date Type Department Care Team (Late st Contact Info) Description 03/30/2025 2:00 PM EST Office Visit Adult Medicine [facility] [address] [place], [place] [phone] Liliana Whyte PA [address] [place], [place] documented as of this encounter Goals Goal [...] met) LTG's 12 visits General Yes López Villar PT Note: Pt will I demonstrate proper technique for sup<->sit transfers in 5/5 trials. Pt will be Independent and compliant with final HEP. Pt will report increased walking/standing tolerance to at liberty for household IADL's and work activities. Pt will report RTW 1/2 time w/out increased L LBP. Autogenerated Goal Care Plan Autogenerated Problem No Anna Thomas documented as of this encounter Visit Diagnoses Not on filedocumented in this encounter Additional Health Concerns Active Problems Noted Date Diagnosed Date Autogenerated Problem 01/26/2025 Assessment Noted Time PHQ-9 Depression Total Score: 0 07/23/19 25 9:14 AM EDT documented as of this encounter Care Teams Chainstitch Elastic Attacher Relationship Specialty Start Date End Date Shayy Mcallister MD [address] [place] [phone] PCP - General 02/07/01 documented as of this encounter
== END 2025-03-27 13:50 | disposition home or self-care (01) ==
LOC: HO.HPHYS 13:02
PROVIDERS: PCP Internal Medicine; Visit Provider Physical Medicine & Rehabilitation
DX: M46.1 Sacroiliitis, not elsewhere classified (principal); M53.3 Sacrococcygeal disorders, not elsewhere classified
CPT/HCPCS: 27096

== ENCOUNTER 2025-04-20 10:12 | Outpatient (AMB) | payer MEDICARE, SELFPAY ==
[2025-04-20 10:15] VITALS: BMI 32.6
--- NOTE | 2025-04-20 10:15 | A.PHYSOV ---
Vital Signs 04/20/25 10:15 Height 5 ft 4 in Weight 190 lb BMI 32.6 Intake Visit Reasons: F/U after injection 03/27/2025 Intake Note: Patient is a 65 year old female here after right SI joint injection 03/27/25. Adult Education Professional Required: No Allergies erythromycin base Allergy (Unknown, Verified 04/20/25 10:16) unknown terbinafine Allergy (Unknown, Verified 04/20/25 10:16) Unknown amoxicillin trihydrate Allergy (Unknown, Uncoded 04/20/25 10:16) Unknown HPI Comments Details: History of Present Illness The patient is a 65 year old female presenting for follow-up of chronic low back pain. She reports about 20% improvement from a recent pain injection in her SI joint, noting that her prior sharp pain has resolved but she now has a constant dull ache. Her current pain is a 6/10 but has been worse with increased activity related to holidays. The patient has a history of back surgery, and an updated MRI has not been performed since. She notes that a course of prednisone provided some relief. She has also started experiencing hip pain when walking for any length of time. She has some pain when sleeping on her sides but denies tenderness to touch in the hip area. Pain Description - Location: Low back and hip. - Quality: A dull ache. - Severity: Currently 3/10, but gets worse. - Exacerbating factors: Sitting, sleeping, walking for any length of time, and increased activity. Results [facility] Medical History (Updated 04/20/25 @ 10:24 by ARLETTE Arceo) Sacroiliac dysfunction Surgical History History of back surgery Hx of tonsillectomy History of cancer surgery Previous section Social History Alcohol intake: current Patient Tobacco Use Status: Never used Tobacco Current occupational status: retired Review of Systems Narrative Review of Systems - Musculoskeletal: Reports a constant dull ache in her low back. - Reports pain in the hip area when walking for any length of time. - Reports occasional pain when sleeping on her sides. - Denies tenderness to touch in the hip area. - Neurological: Denies the sharp pain she previously experienced. Physical Exam Exam Exam: Physical Exam Lumbar Spine: She is tender to lower lumbar facets as well as her right SI joint. She has full range of motion of her lumbar spine. She does have an increase in pain with facet loading. Special Tests: Lhermittes sign was negative Heel Toe walk is normal Left straight leg raise: Negative Right straight leg raise: Negative Special tests Yamile test is negative Ganslen's test is negative SI Joint compression test negative Ayse test negative Piriformis stretch is negative Lower Extremities: Full range of motion bilateral lower extremities. No calf pain or edema. Neuro: Sensation: Intact to lower extremities bilaterally Strength L2 (Psoas): 5/5 on the left and 5/5 on the right. L3 (Quads): 5/5 on the left and 5/5 on the right. L4 (Ant tibialis): 5/5 on the left and 5/5 on the right. L5 (EHL) 5/5 on the left and 5/5 on the right. S1 (Gastroc): 5/5 on the left and 5/5 on the right. DTR L4: (Patellar) Left 2 Right 2 S1: (Achilles) Left 1 Right 1 Babinski Downgoing No pathologic clonus. No involuntary movement. Vital Signs: BMI result Body Mass Index 32.6 Assessment & Plan Assessment & Plan (1) Lumbar radiculopathy: Code(s): M54.16 - Radiculopathy, lumbar region Category: Medical Plan Pain Management - Analgesia: Current pain level is 3/10. - A recent injection provided approximately 20% pain relief. - A recent course of prednisone also helped alleviate her pain. - Activities of Daily Living: Pain is present with sitting and sleeping. - It worsens with increased activity and walking for any length of time. Plan Patient was informed and verbally consented to the use of an ambient scribe for clinic note documentation during this visit. 1. Chronic Low Back Pain The patient continues to experience a dull ache despite partial relief from a recent injection. To further evaluate her symptoms and assess her post-surgical status, an updated lumbar spine MRI with and without contrast will be ordered. The patient expressed a preference for a more open MRI, and it will be scheduled at a facility that can accommodate this. The results of this MRI will also be necessary if she decides to pursue the Intercept procedure. 2. Hip Pain The patient reports new pain in the hip area with prolonged walking. Greater trochanteric bursitis is less likely given the absence of tenderness to touch and lack of significant pain with sleeping. The planned lumbar MRI will help assess for a radicular source of this pain, possibly from the L4 level, which was a previously identified area of concern. Discussion Notes I discussed with the patient her limited (20%) relief from the recent injection and her persistent dull ache. I explained that the next best step is to obtain an updated lumbar MRI to evaluate the status of her previous surgery and rule out other causes for her pain. I informed her that contrast is necessary due to her surgical history. We discussed her preference for a more open MRI, and I will order it at a facility that offers this option. I also noted that this updated imaging would be required if she considers the Intercept procedure. We reviewed her new hip pain and discussed why bursitis is less likely, and that the MRI may help clarify if the pain is originating from her back. Patient Instructions - An MRI of your lower back has been ordered to get a better look at what might be causing your pain. - This MRI will require contrast dye because you have had surgery on your back before. - The MRI will be scheduled at [facility], as they have a more open machine that you may find more comfortable. - After the MRI is done, please schedule a follow-up appointment to discuss the results. - This new MRI will also be needed if you decide to learn more about the Intercept procedure after the New Year. Orders: Orders MR lumbar spine wo/w con Today M51.16 - Intervertebral disc disorders with radiculopathy, lumbar region Coding Level of Care Code Est Pt Level 3 (29510) Diagnoses Lumbar radiculopathy M54.16
--- OUTSIDE RECORDS SUMMARY | 2025-04-20 11:28 | XMS_ITS | Clinical Summary ---
Author Organization [facility] Address [address] [place] [phone] Phone Care Team Providers Care Commercial Production Editor Name Role Phone Shayy Mcallister MD Primary Care Provider [phone] Allergies Active Allergy Reactions Criticality Noted Date Comments Amoxicillin Trihydrate Hives Medium 05/04/2006 Other Reaction(s): Hives/Urticaria Erythromycin Hives High 07/01/2008 Other Reaction(s): Rash/Dermatitis Norethindrone Rash High 10/02/2013 Other Reaction(s): Rash/Dermatitis Terbinafine Hcl Hives Medium 07/20/2009 Other Reaction(s): Hives/Urticaria Medications metFORMIN (GLUCOPHAGE) 500 mg tablet TAKE 1 TABLET BY MOUTH 1 TIME EACH DAY WITH BREAKFAST. 90 tablet 1 025 Active atorvastatin (LIPITOR) 80 mg tablet TAKE 1 TABLET BY MOUTH EVERYDAY AT BEDTIME 90 tablet 1 025 Active lisinopriL (PRINIVIL,ZESTR IL) 20 mg tablet Take 1 tablet (20 mg total) by mouth at bedtime. 025 Active dexAMETHasone (DECADRON) 2 mg tabletIndicatio ns:Spinal stenosis, lumbar region with neurogenic claudication Take 1 tablet (2 mg total) by mouth every 8 (eight) hours for 4 days. 12 each 025 2024 Discontinued(T herapy completed) lisinopriL (PRINIVIL,ZESTR IL) 20 mg tablet Take 1 tablet (20 mg total) by mouth at bedtime. 90 tablet 09/08/22 Discontinued polyethylene glycol (Golytely) 236-22.74-6.74 -5.86 gram solution Take 4L by mouth once for one dose. May substitue any PEG. Starting at 2PM the day before your procedure drink 1 8oz glasses at your own pace until you complete half of the gallon. Finish 2nd half of the gallon at 8PM. 4000 mL 2024 Discontinued(T herapy completed) bisacodyL (DULCOLAX) 5 mg EC tablet Take 2 tablets by mouth right before beginning bowel prep. See instructions provided by the office 2 tablet 2024 Discontinued(T herapy completed) lisinopriL (PRINIVIL,ZESTR IL) 20 mg tablet Take 1.5 tablets (30 mg total) by mouth at bedtime. 135 tablet 2024 Discontinued Active Problems Problem Noted Date Diagnosed Date [...] discectomy. Spondylosis, unspecified 10/14/2024 Fatty liver 02/18/2024 History of COVID-19 02/19/2020 Overview (04/10/2024): Per patient, exposed to [...] at CN 08/26/2012: tubular adenoma. Next CN 2018. HTN (hypertension), benign 05/03/2010 Hyperlipidemia LDL goal <70 08/05/2008 Obesity (BMI 30.0-34.9) 07/01/2008 Onychomycosis 07/01/2008 Resolved Problems Problem Noted Date Diagnosed Date Resolved Date Melanocytic nevus of trunk 08/14/2022 0 11/26/2024 Inflamed seborrheic keratosis 08/14/2022 11/26/2024 Disorder of pigmentation 08/14/202209/2024 Diabetes mellitus 08/14/2022 11/26/2024 Basal cell carcinoma (BCC) of skin of trunk 08/14/2022 11/26/2024 Benign neoplasm of colon 09/2024 Overview (07/22/2024): 5 mm sigmoid colon polyp at CN 08/26/2012. Encounters Date Type Department Care Team Description 04/14/2025 11:15 AM EST Office Visit [address] [phone] Liliana Whyte PA HTN (hypertension), benign (Primary Dx); Hyperlipidemia LDL goal <70; Obesity (BMI 30.0-34.9); Type 2 diabetes mellitus with obesity 04/02/2025 Results Follow-Up [address] [phone] Shayy Mcallister MD 03/30/2025 2:00 PM EST Office Visit [address] [phone] Liliana Whyte PA Encounter for annual wellness visit (AWV) in Medicare patient (Primary Dx); Elevated blood pressure reading; HTN (hypertension), benign; Postmenopausal; Type 2 diabetes mellitus with obesity; Obesity (BMI 30.0-34.9); Hyperlipidemia LDL goal <70 03/30/2025 7:55 AM EST Lab Draw [address] Type 2 diabetes mellitus in patient with obesity ([facility] V24, [facility] V28) 03/22/2025 Results Follow-Up Gastroenterology - [place] 175 [facility] 175 [facility] [address] [place] [phone] Lilia Lepe MD 03/10/2025 [place] [facility] 175 [facility] [address] [place] [phone] Justina Yates PA 02/24/2025 8:52 AM EST Anesthesia Event [facility] [address] [place] [phone] Frederick Licona MD Hayes, Brett L, CRNA 02/24/2025 7:37 AM EST - 02/24/2025 11:59 PM EST Hospital Encounter [facility] [address] [place] [phone] Lilia Lepe MD Hayes, Brett L, CRNA Saliga, Jesse L, MD History of colon polyps Discharge Disposition: Home or Self Care 02/18/2025 Telephone Adult Medicine [address] [phone] Shayy Mcallister MD from Last 3 Months Immunizations Immunization Administration Dates Next Due Ripl/Carlypso SARS-CoV-2 COVID -19, vector-nr, rS-Ad26, preservative free [...] you may not have stable housing? No 03/30/2025 Food Access & Nutrition Answer Date Rec orded Do you have access to a vari ety of food including fruits and vegetables? Yes 03/30/2025 Access to Healthcare Answer Date Record ed Within the last 3 months, ho johana many times did you visit the emergency department for your medical care? 0 03/30/2025 Health Literacy Answer Date Recorded How often do you need to hav e someone help you when you read instructions, pamphlets, or other written material from your doctor or pharmacy? Never 03/30/2025 Caregiver: How often do you need to have someone help you when you read instructions, pamphlets, or other written material from your doctor or pharmacy? Not on file 03/30/2025 Financial Risk Answer Date Recorded How hard is it for you to pa y for the very basics like food, housing, medical care, and air conditioning / heating? Not very hard 03/30/2025 Transportation Answer Date Recorded Has the lack of transportati on kept you from meetings, work, or from getting things needed for daily living? No Has the lack of transportati on kept you from medical appointments or from getting medications? No 03/30/2025 Social Isolation Answer Date Recorded How often do you feel lonely or isolated from th ose around you? Never 03/30/2025 Food Risk Answer Date Recorded Within the past 12 months we worried whether our food would run out before we got money to buy more. Never true 03/30/2025 Within the past 12 months th e food we bought just didn't last and we didn't have money to get more. Never true 03/30/2025 Dependent Care Answer Date Recorded Do you need help finding or paying for care for your loved ones. For example, child and youth program assistant or elderly care for an older adult? No 03/30/2025 Education Answer Date Recorded Do you think completing more education or training, like finishing a GED, going to college, or learning a trade, would be helpful for you? No 03/30/2025 Employment and Income Answer Date Recor ded During the last four weeks, have you been actively looking for work? No 03/30/2025 Living Situation Answer Date Recorded What is your living situation? 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 Not on file Not on file Not on file Last Filed Vital Signs Vital Sign Reading Time Taken Comments Blood Pressure 120/68 04/14/2025 11:04 AM EST Pulse 86 04/14/2025 11:04 AM EST Temperature 36 C (96.8 F) 04/14/2025 11:04 AM EST Respiratory Rate 18 04/14/2025 11:04 AM EST Oxygen Saturation 97% 03/30/2025 1:54 PM EST Inhaled Oxygen Concentration - - Weight 89.4 kg (197 lb) 04/14/2025 11:04 AM EST Height 162.6 cm (5' 4 ) 04/14/2025 11:04 AM EST Body Mass Index 33.81 04/14/2025 11:04 AM EST Plan of Treatment Upcoming Encounters Date Type Department Care Team (Late st Contact Info) Description 06/17/2025 1:30 PM EST [facility]ointment [facility] [address] [phone] 06/17/2025 2:00 PM EST Appointment [facility] Bone Density [address] [place] [address] 07/14/2025 9:30 AM EDT Office Visit Adult Medicine [facility] [address] [place], [place] [phone] Shayy Mcallister MD [address] [place], [place] Health Maintenance Due Date Last Done Comments Diabetes: Annual Retina Eye Exam 1970 Pneumococcal Vaccine: 50+ Years (1 of 2 - PCV) 1979 Zoster Vaccines (1 of 2) 1979 COVID-19 Vaccine (2 - Tish risk series) 08/30/2020 08/02/2020 Osteoporosis Screening (Bone Density Screening) 04/01/2022 Cervical Cancer Screening: HPV 05/08/2024 05/08/2019 Influenza Vaccine (#1) 2024 Diabetes: Annual Foot Exam 02/13/2025 02/14/2024 Breast Cancer Screening 02/17/2025 02/18/20 24, 02/18/2024, 04/19/2022, Additional history exists Diabetes: Annual Urine Albumin-Creatinine Ratio (uACR) 07/17/2025 07/17/2024, 03/27/2023 Diabetes: Blood Sugar Control Test (HGBA1C) 09/28/2025 03/30/2025, 11/26/2024, 07/17/2024, Additional history exists Diabetes: Annual GFR (Glomerular Filtration Rate) 11/26/2025 11/26/2024, 07/17/2024, 01/29/2024, Additional history exists Hypertension/CHF/CAD Annual BMP Blood Test 11/26/2025 11/26/2024, 07/17/2024, 01/29/2024, Additional history exists Falls Risk Assessment 03/30/2026 03/30/2025, 025 Medicare Annual Wellness Visit 03/30/2026 03/30/2025 Social Influencers of Health Screening 03/30/2026 03/30/2025 DTaP,Tdap,and Td Vaccines (3 - Td or Tdap) 09/04/2028 09/04/2018, 07/01/2008 Cholesterol Screening (Lipid Panel) 11/26/2029 11/26/2024, 01/29/2024, 01/29/2024 Colorectal Cancer Screening: Colonoscopy 02/24/2035 02/24/2025, 01/06/2019 RSV Immunization Adult Patients (1 - 1-dose 75+ series) 2035 Hepatitis C Screening Completed 08/21/2013 Depression Screening Completed 03/30/2025 HIB Vaccines Aged Out No longer eligi [...] [employer] Implanted Type Area Decontamination Technician Device Identifier Shelf Expiration Date Model / Serial / Lot Powder Surgifoam Absorb Gel - Sna - [id number] Implanted:Qty: 1 on 10/23/2024 by Margi Spears MD at [facility] [employer] Left: Spine Lumbar [employer] 07/08/20261977 / NA / [id number] Procedures Procedure Name Priority Date/Time Associated Diagnosis Comments HEMOGLOBIN A1C Routine 03/30/2025 7:55 AM EST Type 2 diabetes mellitus in patient with obesity ([facility] V24, [facility] V28) COLONOSCOPY Routine 02/24/2025 9:11 AM EST History of colon polyps TISSUE EXAM Routine 02/24/2025 9:03 AM EST History of colon polyps COMPREHENSIVE METABOLIC PANEL Routine 11/26/2024 10:20 AM EDT HTN (hypertension), benign LIPID PANEL WITH REFLEX TO DIRECT LDL Routine 11/26/2024 10:20 AM EDT Hypercholesteremia MICROALBUMIN CREATININE URINE RATIO Routine 07/17/2024 9:30 AM EDT Type 2 diabetes mellitus with obesity ([facility] V24, [facility] V28) SCREENING MAMMOGRAPHY BI 2-VIEW BREAST INC CAD Routine 02/18/2024 8:11 AM EDT Encounter for screening mammogram for malignant neoplasm of breast DIABETES FOOT EXAM Routine 02/14/2024 HPV Routine 05/08/2019 HEPATITIS C SCREENING Routine 08/21/2013 from Last 3 Months or Most Recently Relevant to Health Maintenance Results * (ABNORMAL) Hemoglobin A1c (03/30/2025 7:55 AM EST) Hemoglobin A1C 7.6(H) <6.5 % LAB CHEMISTRY METHOD 04/01/2025 10:[address] [facility] Mean Bld Glu Estim. 171 mg/dL LAB CHEMISTRY METHOD 04/01/2025 10:[address] [facility] Blood Venous blood specimen / Unknown Venipuncture / Unknown 03/30/2025 7:55 AM EST 03/30/2025 7:55 AM EST us Shayy Mcallister MD LAB BLOOD ORDERABLES Final Resul t [facility] [address] [place] [address], * COLONOSCOPY Anesthesia - MAC; [facility] ENDOSCOPY (02/24/2025 9:11 AM EST) Anatomical [...] for surveillance. Narrative 02/24/2025 9:16 AM EST [facility] GI Patient Name: Pam Kennedy Procedure [...] verified by the physician, the nurse, the radar scientist and the hydraulic technician in the pre-procedure area in the [...] not prolapse). Procedure Code(s): --- Professional --- 43658, Colonoscopy, flexible; with biopsy, single or multiple Diagnosis Code(s): --- Professional --- D12.2, Benign neoplasm of ascending colon CPT copyright 2020 [employer]. All rights reserved. The codes documented in this report are preliminary and upon hydroelectric machinery mechanic review may be revised to meet current compliance requirements. Lilia Lepe MD 02/24/2025 9:16:27 AM This report has been signed electronically.Lilia Lepe MD Number of Addenda: 0 Note Initiated On: 02/24/2025 8:54 AM Scope Withdrawal Time: 0 hours 9 minutes 55 seconds Scope In: 8:58:07 AM Scope Out: 9:13:30 AM Endoscopy Department at [facility] - [address] [place] [phone] Procedure Note Lilia Lepe MD - 02/24/2025 [facility] GI Patient Name: Pam Kennedy Procedure [...] the physician, the nurse, theanesthetist and the hydraulic technician in the pre-procedure area in the [...] not prolapse). Procedure Code(s): --- Professional --- 57627, Colonoscopy, flexible; with biopsy, singleor multiple Diagnosis Code(s): --- Professional --- D12.2, Benign neoplasm of ascending colon CPT copyright 2020 [employer]. All rights reserved. The codes documented in this report are preliminary and upon hydroelectric machinery mechanic reviewmay be revised to meet current compliance requirements. Lilia Lepe MD 02/24/2025 9:16:27 AM This report has been signed electronically.Lilia Lepe MD Number of Addenda: 0 Note Initiated On: 02/24/2025 8:54 AM Scope Withdrawal Time: 0 hours 9 minutes 55 seconds Scope In: 8:58:07 AM Scope Out: 9:13:30 AM Endoscopy Department at [facility] - [address] [place] [phone] IMPRESSION: - Two diminutive polyps in the ascending colon, removed with a jumbo cold forceps. Resected and retrieved. - Diverticulosis in the sigmoid colon. - Internal hemorrhoids. Recommendation: - Await pathology results. - Repeat colonoscopy in 10 years forsurveillance. us Lilia Lepe MD GI~PROCEDURE ORDERABLES Fin al Result * Tissue exam (02/24/2025 9:03 AM EST) Final Diagnosis Ascending colon polyps x2: Tubular adenoma(s), two of three fragments 02/25/2025 11:[address] [facility] at 1143 EST Gross Description [...] multiple levels. TS 02/25/2025 11:[address] [facility] Disclaimer Unless otherwise specified, all tissue is 10% NB formalin fixed and paraffin embedded. 02/25/2025 11:[address] [facility] Tissue Ascending colon structure / Unknown 02/24/2025 9:03 AM EST 02/24/2025 10:32 AM EST us Lilia Lepe MD LAB PATHOLOGY ORDERABLES Fi nal Result [facility] [address] [place] [address], * (ABNORMAL) Lipid panel with reflex to direct LDL (11/26/2024 10:20 AM EDT) Cholesterol 199 0 - 200 mg/dL LAB CHEMISTRY METHOD 11/26/2024 12:[address] [facility] Triglycerides 102 0 - 150 mg/dL LAB CHEMISTRY METHOD 11/26/2024 12:[address] [facility] HDL 78 >=40 mg/dL LAB CHEMISTRY METHOD 11/26/2024 12:[address] [facility] LDL Calculated 101(H) 0 - 100 mg/dL LAB CHEMISTRY METHOD 11/26/2024 12:[address] [facility] Comment:Estimated LDL Calcul ated using equation: Total cholesterol - HDL cholesterol - (Triglycerides/5) VLDL Cholesterol Alexis 20.4 mg/dL LAB CHEMISTRY METHOD 11/26/2024 12:[address] [facility] Non HDL Chol. (LDL+VLDL) 121 <145 mg/dL LAB CHEMISTRY METHOD 11/26/2024 12:[address] [facility] Chol/HDL Ratio 2.6 0.0 - 4.4 LAB CHEMISTRY METHOD [facility] Blood Venous blood specimen / Unknown Venipuncture / Unknown 11/26/2024 10:20 AM EDT 11/26/2024 10:20 AM EDT us Shayy Mcallister MD LAB BLOOD ORDERABLES Final Resul t [facility] [address] [place] [address], * (ABNORMAL) Comprehensive metabolic panel (11/26/2024 10:20 AM EDT) Sodium 139 133 - 145 mmol/L LAB CHEMISTRY METHOD 11/26/2024 12:52 PM [facility] Potassium 4.6 3.5 - 5.5 mmol/L LAB CHEMISTRY METHOD 11/26/2024 12:52 PM [facility] Chloride 106 96 - 110 mmol/L LAB CHEMISTRY METHOD 11/26/2024 12:52 PM [facility] CO2 28 21 - 32 mmol/L LAB CHEMISTRY METHOD 11/26/2024 12:52 PM [facility] Anion Gap 5 3 - 11 LAB CHEMISTRY METHOD 11/26/2024 12:52 PM [facility] Glucose 123(H) 70 - 100 mg/dL LAB CHEMISTRY METHOD 11/26/2024 12:52 PM [facility] BUN 15 5 - 25 mg/dL LAB CHEMISTRY METHOD 11/26/2024 12:52 PM [facility] Creatinine 0.79 0.50 - 1.10 mg/dL LAB CHEMISTRY METHOD 11/26/2024 12:52 PM [facility] eGFR 84 >=60 mL/min/1. 73m2 LAB CHEMISTRY METHOD 11/26/2024 12:52 PM [facility] Comment:Calculation based on the Chronic Kidney Disease Epidemiology Collaboration (CKD-EPI) equation refit without adjustment for race. BUN/Creatinine Ratio 19.0 LAB CHEMISTRY METHOD 11/26/2024 12:52 PM [facility] Calcium 8.9 8.5 - 10.5 mg/dL LAB CHEMISTRY METHOD 11/26/2024 12:52 PM [facility] AST (SGOT) 18 10 - 42 unit/L LAB CHEMISTRY METHOD 11/26/2024 12:52 PM [facility] ALT (SGPT) 22 10 - 60 unit/L LAB CHEMISTRY METHOD 11/26/2024 12:52 PM [facility] Alkaline Phosphatase 175(H) 42 - 121 unit/L LAB CHEMISTRY METHOD 11/26/2024 12:52 PM [facility] Total Protein 6.9 6.0 - 8.0 g/dL LAB CHEMISTRY METHOD 11/26/2024 12:52 PM [facility] Albumin 3.7 3.2 - 5.0 g/dL LAB CHEMISTRY METHOD 11/26/2024 12:52 PM [facility] Total Bilirubin 0.3 0.0 - 1.4 mg/dL LAB CHEMISTRY METHOD 11/26/2024 12:52 PM [facility] Blood Venous blood specimen / Unknown Venipuncture / Unknown 11/26/2024 10:20 AM EDT 11/26/2024 10:20 AM EDT us Shayy Mcallister MD LAB BLOOD ORDERABLES Final Resul t Performing Organization Address [facility] de Phone Number [facility] [address] [place] [address], [place] [phone] * Microalbumin creatinine urine ratio (07/17/2024 9:30 AM EDT) Pathologist [facility] Creatinine, Urine 110.0 mg/dL LAB CHEMISTRY METHOD 07/17/2024 4:[address] [facility] Microalb, Ur 6.4 0.0 - 29.0 mg/L LAB CHEMISTRY METHOD 07/17/2024 4:[address] [facility] Microalb/Creat Ratio 6 <30 mg/g creat LAB CHEMISTRY METHOD 07/17/2024 4:[address] [facility] Urine Urine specimen obtained by clean catch procedure / Unknown Non-blood Collection / Unknown 07/17/2024 9:30 AM EDT 07/17/2024 9:30 AM EDT us Shayy Mcallister MD LAB URINE ORDERABLES Final Resul t Performing Organization Address [facility] de Phone Number [facility] [address] [place] [address], [place] [phone] * SCREENING MAMMOGRAPHY BI 2-VIEW BREAST INC [...] evidence of malignancy. BI-RADS 1 - negative [address] [address] Procedure Note Alexsandra Santos MD - 02/23/2024 [...] evidence of malignancy. BI-RADS 1 - negative [address] [address] Result [facility] Liliana CHONG IMG XR PROCEDURES Final Resul t * Diabetes Foot Exam (02/14/2024) Pathologist [facility] Diabetes: Annual Foot Exam abstracted [facility] Provider HEALTH MAINTENANCE Final Result * Cervical Cancer Screening: HPV (05/08/2019) [facility] Cervical Cancer Screening: HPV negative, abstracted Result [facility] Provider HEALTH MAINTENANCE Final Result * Hepatitis C Screening (08/21/2013) [facility] Hepatitis C Screening abstracted [facility] Provider HEALTH MAINTENANCE Final Result from Last 3 Months or Most Recently Relevant to Health Maintenance Additional Health Concerns Active Problems Noted Date Diagnosed Date Autogenerated Problem 01/26/2025 Insurance MEDICARE [facility] Care Teams Commercial Production Editor Relationship Specialty Start Date End Date Shayy Mcallister MD [address] [place] [address] PCP - General 02/07/01
--- OUTSIDE RECORDS SUMMARY | 2025-04-20 11:28 | XMS_ITS | Encounter Summary ---
Author Organization [facility] [place] [address] Care Team Providers Care Dermatological Surgeon Name Role Phone Shayy Mcallister MD Primary Care Provider [phone] Encounter Details Date Type Department Care Team (Late st Contact Info) Description 04/02/2025 Results Follow-Up Adult Medicine [facility] [address] [place], [place] [phone] Shayy Mcallister MD [address] [place], [place] Social History Tobacco Use Types Packs/Day Years [...] care for your loved ones. For example, early childhood special educator or elderly care for an older adult? 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 Not on file Not on file Not on file documented as of this encounter Plan of Treatment Upcoming Encounters Date Type Department Care Team (Late st Contact Info) Description 06/17/2025 1:30 PM EST [facility]ointment [facility] at [address] [phone] 06/17/2025 2:00 PM EST Appointment [facility] Bone Density [address] [place] [phone] 07/14/2025 9:30 AM EDT Office Visit Adult [facility] [address] [place], [place] [phone] Shayy Mcallister MD [address] [place], [place] documented as of this encounter Goals [...] Score: 0 07/23/19 25 9:14 AM EDT A fall risk assessment has been complete d for the patient 03/30/2025 1:55 PM EST documented as of this encounter Care Teams Dermatological Surgeon Relationship Specialty Start Date End Date Shayy Mcallister MD [address] [place] [address] PCP - General 02/07/01 documented as of this encounter
--- OUTSIDE RECORDS SUMMARY | 2025-04-20 11:28 | XMS_ITS | Encounter Summary ---
Author Organization [facility] [place] [address] Care Team Providers Care Physical Therapy Assistant Instructor Name Role Phone Shayy Mcallister MD Primary Care Provider Encounter Details Date Type Department Care Team ([facility] st Contact Info) Description 03/22/2025 Results Follow-Up Gastroenterology - [place] 175 [facility] 175 [facility] [address] [place] [address] Lilia Lepe MD 299 [facility] [address] [place] [address] Social History Tobacco Use Types Packs/Day Years [...] for your loved ones. For example, children's zoo caretaker or elderly care for an older adult? 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 Regards, Derek Lepe MD Board Certified Gastroenterology and Internal Medicine Transplant Hepatology [facility] documented in this encounter Plan of Treatment Upcoming Encounters Date Type Department Care Team (Late st Contact Info) Description 06/17/2025 1:30 PM EST [facility]ointment [facility] at [address] [phone] 06/17/2025 2:00 PM EST Appointment [facility] Bone Density [address] [place] [phone] 07/14/2025 9:30 AM EDT Office Visit Adult Medicine [address] [phone] Shayy Mcallister MD [address] [place] [address] documented as of this encounter Goals Goal [...] documented as of this encounter Care Teams Physical Therapy Assistant Instructor Relationship Specialty Start Date End Date Shayy Mcallister MD [address] [place] [address] PCP - General 02/07/01 documented as of this encounter
== END 2025-04-20 10:29 | disposition home or self-care (01) ==
LOC: HO.HPHYS 10:13
PROVIDERS: PCP Internal Medicine; Visit Provider Physician Assistant
DX: M54.16 Radiculopathy, lumbar region (principal)
CPT/HCPCS: 99213

== ENCOUNTER → 2025-04-20 10:12 | Outpatient (BNVA) | payer MEDICARE, SELFPAY | PROVIDERS: PCP Internal Medicine; Visit Provider Physician Assistant | DX: M54.16 Radiculopathy, lumbar region (principal) | CPT/HCPCS: 99212 ==